=== PATIENT | female | born 1945 | race Caucasian/White ===

== ENCOUNTER → 2024-04-04 14:46 | Outpatient (REF) | payer OTHER, SELFPAY | LOC: HWWDC 14:46 | PROVIDERS: ATTENDING PHYSICIAN Family Medicine | DX: Z12.31 Encounter for screening mammogram for malignant neoplasm of breast (principal) | CPT/HCPCS: 77063; 77067 ==

== ENCOUNTER 2024-05-29 16:12 | Emergency (ER) | payer OTHER, SELFPAY ==
[2024-05-29 16:14] VITALS: BP 148/84
[2024-05-29 16:39] LABS: % Basophils 0.2 % (0-2); % Eosinophils 0.1 % (0-6); % Immature Granulocytes 0.5 % (0-0.5); % Lymphocytes 2.4 % (20.5-51.1); % Monocytes 3.4 % (1.7-9.3); % Neutrophils 93.4 % (42.2-75.2); Absolute Immature Granulocytes 0.1 10^3/uL (0-0.05); Absolute Lymphocytes 0.3 10^3/uL (1.2-3.4); Absolute Monocytes 0.5 10^3/uL (0.1-0.6); Absolute Neutrophils 12.3 10^3/uL (1.4-6.5); Hematocrit 36.5 % (37.0-47.0); Hemoglobin 12.2 g/dL (12.0-16.0); Mean Corp Hgb Conc. 33.4 g/dL (33.0-37.0); Mean Corpuscular Hgb 30.9 pg (27.0-31.0); Mean Corpuscular Volume 92.4 fL (81.0-99.0); Mean Platelet Volume 9.9 fL (7.4-10.4); Nucleated Red Blood Cells % 0 %; Platelet Count 202 10^3/uL (130-400); Red Blood Cell Count 3.95 10^6/uL (4.20-5.40); Red Cell Dist. Width 12.6 % (11.5-14.5); White Blood Cell Count 13.1 10^3/uL (4.8-10.8)
[2024-05-29 16:41] LABS: Urine Albumin 3+ (Neg - Trace); Urine Bilirubin Negative (Negative); Urine Character Slightly Cloudy (Clear); Urine Color Yellow; Urine Glucose Negative (Negative); Urine Ketone 1+ (Negative); Urine Leukocyte 3+ (Negative); Urine Nitrite Positive (Negative); Urine Occult Blood 4+ (Negative); Urine Urobilinogen Negative (Neg - 1+); Urine pH 6.5 (5.0-9.0)
[2024-05-29 16:49] LABS: Lactic Acid 1.5 mmol/L (0.7-2.0)
[2024-05-29 16:56] LABS: ALT (SGPT) 106 U/L (0-35); AST (SGOT) 110 U/L (14-36); Albumin 4.4 g/dl (3.5-5.0); Alkaline Phosphatase 98 U/L (38-126); Blood Urea Nitrogen 16 mg/dl (7-17); Calcium 8.7 mg/dl (8.4-10.2); Carbon Dioxide 25 mmol/L (22-30); Chloride 98 mmol/L (98-107); Glucose 131 mg/dl (70-99); Potassium 4.5 mmol/L (3.5-5.1); Sodium 132 mmol/L (135-145); Total Bilirubin 1.2 mg/dl (0.2-1.3); Total Protein 6.6 g/dl (6.3-8.2); eGFR > 60.00
[2024-05-29 17:05] LABS: Urine Bacteria Many (Negative); Urine Red Blood Cell 26-30 /HPF (0-2); Urine White Cell >100 /HPF (0-5)
[2024-05-29 20:27] VITALS: BP 118/57
[2024-05-29] MEDS: ROCEPHIN 1000 MG IV (20:51)
[2024-05-29 21:05] VITALS: BP 118/57; BMI 23.5
--- NOTE | 2024-05-29 21:07 | ED.GENMED ---
History of Present Illness
General
Chief Complaint: Fever
Time Seen by Provider: 05/29/24 20:15
History of Present Illness
History of Present Illness:
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 Symptoms seem to be waxing and waning over that
time. No chest pain or shortness of breath. No nausea or vomiting. Has had multiple UTIs over the past 3 months
Past History
Past History
ED Past Medical History: HTN
ED Past Surgical History: Appendectomy and Cholecystectomy
Social History
Tobacco: Non-smoker
Alcohol: Daily (wine one glass)
Personal:
Living: with family
Review of Systems
Review of Systems
Allergies reviewed?: Yes
All Other Systems: ROS reviewed and negative except as documented in HPI and ROS
Phy Exam
Physical Exam
Physical Exam:
GEN: Well appearing, NAD, WDWN
HEENT: Oral mucosa moist, no scleral icterus
Cardiac: Regular rate and rhythm, no murmurs
Lung: No respiratory distress, no tachypnea, lungs clear to auscultation bilaterally
Abdomen: Soft, nontender, no CVA tenderness
MSK: No gross deformity or injuries
Skin: Good color, no pallor or jaundice, no rashes
Neuro: AO x3, moves all extremities freely
Psych: Calm, cooperative
Sepsis
Sepsis Screening
Sepsis Assessment: Sepsis
Sepsis Screen
Sepsis Screen: Sepsis
Date: 05/30/24
Time: 00:42
Course
Orders/Labs/Results
Orders:
Orders
05/29/24 16:23
Complete Blood Count/With Diff Urgent
Comprehensive Metabolic Panel Urgent
Lactic Acid Urgent
Urinalysis Reflex To Culture Urgent
Date Specimen was Collected: 05/29/24
Time Specimen was Collected: 16:17
Urine Microscopic Reflex Cult Urgent
Blood Culture Urgent
ANNA MARIE Source: Blood/Venous
Specimen Description:
Urine Culture Urgent
ANNA MARIE Source: U
Specimen Description:
Date Specimen was Collected: 05/29/24
Time Specimen was Collected: 16:17
05/29/24 20:31
CefTRIAXone [Rocephin] 1,000 mg IV NOW STA
Abnormal Lab Results
05/29/24
16:23
WBC 13.1 H 10^3/uL
(4.8-10.8)
RBC 3.95 L 10^6/uL
(4.20-5.40)
Hct 36.5 L %
(37.0-47.0)
Abs Immat Gran (auto) 0.1 H 10^3/uL
(0-0.05)
Absolute Neuts (auto) 12.3 H 10^3/uL
(1.4-6.5)
Absolute Lymphs (auto) 0.3 L 10^3/uL
(1.2-3.4)
Neutrophils % 93.4 H %
(42.2-75.2)
Lymphocytes % 2.4 L %
(20.5-51.1)
Sodium 132 L mmol/L
(135-145)
Glucose 131 H mg/dl
(70-99)
AST 110 H U/L
(14-36)
ALT 106 H U/L
(0-35)
Urine Ketones 1+ A
(Negative)
Ur Occult Blood Reflex 4+ A
(Negative)
Urine Nitrite (Reflex) Positive A
(Negative)
Leukocyte Esterase Rfl 3+ A
(Negative)
Urine RBC 26-30 A /HPF
(0-2)
Urine WBC (Reflex) >100 A /HPF
(0-5)
Urine Bacteria (Reflex) Many A
(Negative)
Urine Albumin (Reflex) 3+ A
(Neg - Trace)
05/29/24 16:23
05/29/24 16:23
Vital Signs
Initial and Last Documented VS:
Initial Vital Signs
Temp Pulse Resp BP Pulse Ox
100.9 F H 108 16 148/84 95
05/29/24 16:14 05/29/24 16:14 05/29/24 16:14 05/29/24 16:14 05/29/24 16:14
Last Documented Vital Signs
Temp Pulse Resp BP Pulse Ox
98.3 F 87 15 118/57 96
05/29/24 21:05 05/29/24 21:05 05/29/24 21:05 05/29/24 21:05 05/29/24 21:05
MDM/Problems Addressed
MDM/Problems Addressed:
Urinalysis is grossly positive, most recent was treated with nitrofurantoin thus we will switch to cephalosporins. Does have leukocytosis however normal lactic acid, benign exam, no clinical concerns for urinary obstruction. Postvoid residual
below 50 cc. Will give initial dose IV antibiotics and start on oral cephalosporins
*Critical Care Note
Total Time (30-74mins, 75-104mins- exclusive of procedures): Not Applicable
ED Attending Note
-
Portions of this chart may have been created with voice recognition software.� Occasional wrong word or��sound alike� substitutions may have occurred due to the inherent limitations of voice recognition software.
Discharge Plan
Departure
Patient Disposition: Home (Routine Discharge)
Date of Disposition: 05/29/24
Time of Disposition: 21:09
Patient with high blood pressure during this ER visit?: No
Discharge Problem:
Urinary tract infection
Instructions: Urinary tract infections in adults
Prescriptions:
New
cefdinir 300 mg capsule
300 mg PO Q12H 6 Days Qty: 12 0RF
No Action
multivitamin Tablet
1 tab PO DAILY
atorvastatin 10 mg Tablet
10 mg PO DAILY
alendronate [Fosamax] 70 mg Tablet
70 mg PO QWEEK
Rx Instructions:
Wednesday
calcium carbonate [Calcium 600] 600 mg calcium (1,500 mg) Tablet
1,200 mg PO DAILY
ascorbic acid (vitamin C) [Vitamin C] 500 mg Tablet
500 mg PO DAILY
ramipril 5 mg Capsule
5 mg PO QPM
cholecalciferol (vitamin D3) [Vitamin D3] 50 mcg (2,000 unit) Capsule
50 mcg PO DAILY
Glucosamine Chondroitin 550-30-1 mg Capsule
1 cap PO DAILY
acetaminophen 325 mg Tablet
650 mg PO Q4HPRN PRN (Reason: mild pain) Qty: 60 0RF
docusate sodium 100 mg Capsule
100 mg PO BID Qty: 60 0RF
oxycodone 5 mg Tablet
5 mg PO Q4HPRN PRN (Reason: severe pain when tolerating PO) Qty: 10 0RF
ibuprofen [IBU] 600 mg tablet
600 mg PO Q6H PRN (Reason: pain) Qty: 60 0RF
Referrals:
NONE,* [Active] -
Activity Restrictions/Additional Instructions:
Begin antibiotics tomorrow
Follow up in the Emergency Department if symptoms worsen
Interventions
Interventions:
*Risk Screen - Suicide Last Done: 05/29/24 16:16
*General Assessment Last Done: 05/29/24 21:38
*Neglect/Abuse Screening Last Done: 05/29/24 16:16
*ED- Fall Risk Assessment Last Done: 05/29/24 21:38
*ED COVID-19 Vaccine History Last Done: 05/29/24 21:38
*Nursing Disposition Last Done: 05/29/24 21:38
ED- Neurological Assessment Last Done: 05/29/24 21:06
ED-Skin Assessment Last Done: 05/29/24 21:06
Discharge Date and Time
Discharge Date/Time: 05/29/24 21:40
Print Language: AMHARIC
== END 2024-05-29 21:40 | disposition home or self-care (01) ==
LOC: EMR 16:12
PROVIDERS: Emergency Medicine; EMERGENCY PHYSICIAN Emergency Medicine; FAMILY PHYSICIAN Family Medicine
DX: N39.0 Urinary tract infection, site not specified (principal); I10 Essential (primary) hypertension; Z90.49 Acquired absence of other specified parts of digestive tract
CPT/HCPCS: 96374; 99284; 80053; 81003; 81015; 83605; 85025; 87040; 87077; 87086; 87186

== ENCOUNTER → 2024-08-21 09:44 | Outpatient (REF) | payer OTHER, SELFPAY | LOC: HWRAD 09:44 | PROVIDERS: ATTENDING PHYSICIAN Family Medicine; REFERRING PHYSICIAN Internal Medicine Rheumatology | DX: Z78.0 Asymptomatic menopausal state (principal) | CPT/HCPCS: 77080 ==